=== PATIENT | female | born 1945 | race African-American/Black ===

== ENCOUNTER → 2018-09-06 | Outpatient (CLI) | payer MEDICARE ==
[2014-10-20 08:27] VITALS: BMI 27.8
[~2018-09-06] MED LIST: ASCO-246 PO; ASPI-1471 PO; ASPI-757 PO; CHOL100062 PO; CLOP75TA PO; LISI-362 PO; METO-253 PO; PRAV10TA46 PO; PRAV20TA66 PO; ROSU10TA FT; TURM1CAP PO; TURM500C7 PO; [UNRECOGNIZED DRUG - CODE] PO
== END ==
LOC: MAMO 00:47
PROVIDERS: ATTEND Physician Assistant
DX: Z02.9 Encounter for administrative examinations, unspecified (principal)